=== PATIENT | female | born 1980 | race Caucasian/White ===

== ENCOUNTER 2022-11-28 23:58 | Emergency (ER) | payer OTHER ==
[~2022-11-28] VITALS: Ht 160 cm; Wt 177.0 kg
[2022-11-29 02:00] VITALS: BP 124/68; PULSE 74; RESP 16; TEMP 98.3
[2022-11-29] MEDS ORDERED: IBUPROFEN 600 MG TABLET PO ONE (02:00)
== END 2022-11-29 02:00 | disposition home or self-care (01) ==
LOC: EMS 23:58
DX: S63.612A Unspecified sprain of right middle finger, initial encounter (principal); S63.614A Unspecified sprain of right ring finger, initial encounter; Z88.0 Allergy status to penicillin; Z91.010 Allergy to peanuts; Z91.018 Allergy to other foods; X58.XXXA Exposure to other specified factors, initial encounter; Y93.89 Activity, other specified; Y92.89 Other specified places as the place of occurrence of the external cause; Y99.8 Other external cause status
CPT/HCPCS: 29280; 99283